=== PATIENT | female | born 1995 | race Hispanic/Latino ===

== ENCOUNTER 2022-10-11 19:29 | Day surgery (SDC) | payer OTHER ==
[2022-10-11 20:05] VITALS: BMI 29.5
[2022-10-11 20:41] LABS: Fetal Membranes Rupture No Membranes Rupture (No Rupture)
[2022-10-11] MEDS ORDERED: hydrALAZINE 20 MG/ML VIAL SLOW IVP PRN (21:12)
== END 2022-10-11 21:10 | disposition home or self-care (01) ==
LOC: CSHLD/OP 19:29
PROVIDERS: ATTEND Family Medicine
DX: Z03.71 Encounter for suspected problem with amniotic cavity and membrane ruled out (principal); O24.410 Gestational diabetes mellitus in pregnancy, diet controlled; Z3A.36 36 weeks gestation of pregnancy
CPT/HCPCS: 84112; 99283

== ENCOUNTER 2022-10-14 08:17 | Inpatient (IN) | payer MEDICAID, SELFPAY ==
[2022-10-14] MEDS ORDERED: Acetaminophen 500 MG TAB PO PRN (09:32)
[2022-10-14] MEDS ORDERED: Ibuprofen 800 MG TAB PO PRN (09:32)
[2022-10-14] MEDS ORDERED: Methylergonovine 0.2 MG/ML VIAL IM PRN (09:32)
[2022-10-14] MEDS ORDERED: hydrALAZINE 20 MG/ML VIAL SLOW IVP PRN (09:32)
[2022-10-14] MEDS ORDERED: Butorphanol Tartrate 1 MG/ML VIAL SLOW IVP PRN (09:32)
[2022-10-14] MEDS ORDERED: Lidocaine 1% (PF) 30 ML VIAL SC PRN (09:32)
[2022-10-14] MEDS ORDERED: Ondansetron PF 4 MG/2 ML Vial IVP PRN ×3 (09:32→21:44)
[2022-10-14] MEDS ORDERED: Misoprostol 200 MCG TAB PR PRN (09:32)
[2022-10-14] MEDS ORDERED: Carboprost 250 MCG/ML AMP IM PRN (09:32)
[2022-10-14] MEDS ORDERED: Promethazine HCl 25 MG/ML VIAL IM PRN ×3 (09:32→21:44)
[2022-10-14] MEDS ORDERED: Fentanyl 100 MCG/2 ML VIAL SLOW IVP PRN ×2 (09:32→21:44)
[2022-10-14] MEDS ORDERED: NS w/ Oxytocin 30 units 500 ML IV SCH ×2 (09:45)
[2022-10-14] MEDS ORDERED: Misoprostol 100 MCG TAB VAG SCH (09:45)
[2022-10-14 09:50] LABS: Fetal Membranes Rupture No Membranes Rupture (No Rupture)
[2022-10-14] MEDS: Lactated Ringer's 1,000 ML IV SCH ×2 (10:10→14:06)
[2022-10-14 10:28] LABS: Hemoglobin 11.2 g/dL (12.0-15.5); Mean Corpuscular HGB CONC 33.4 g/dL (32.0-36.0); Mean Corpuscular Hemoglobin 27.9 pg (27.0-33.0); Mean Corpuscular Volume 83.5 fl (81.6-98.3); Mean Platelet Volume 9.1 fl (7.4-10.4); Platelet Count 325 10x3/uL (150-450); RBC Distribution Width 15.6 % (11.5-14.5); Red Blood Cell (RBC) Count 4.01 10x6/uL (3.90-5.03); White Blood Cell (WBC) Count 24.3 10x3/uL (3.5-10.5)
[2022-10-14] MEDS ORDERED: Fentanyl 2 mcg/Bup 0.1% Cadd 100 ML ONE ×2 (10:37→18:23)
[2022-10-14 10:57] LABS: HBSAg Index 0.15 S/CO (0-0.99); Hep B Surf Ag Non-Reactive S/CO (NonReactive)
[2022-10-14] MEDS: Fentanyl 2 mcg/Bupivacaine 0.1% Cassette 100 ML EPIDURAL SCH ×2 (10:58→18:27)
[2022-10-14 10:59] LABS: Syphilis Antibody Nonreactive (Nonreactive); Syphilis Antibody Index 0.03 S/CO (<1.00 Non-Reactive)
[2022-10-14 11:28] VITALS: BMI 29.5
[2022-10-14] MEDS ORDERED: Naloxone HCl 0.4 mg/ml Vial IVP PRN ×4 (11:38→21:44)
[2022-10-14] MEDS ORDERED: ePHEDrine Sulfate 50 MG/10 ML VIAL SLOW IVP PRN (11:38)
[2022-10-14] MEDS ORDERED: Moisturizing Cream (Eucerin) 113 GM JAR TOP PRN ×2 (11:38→21:44)
[2022-10-14] MEDS ORDERED: diphenhydrAMINE 50 MG/ML VIAL IVP PRN ×2 (11:38→21:44)
[2022-10-14] MEDS ORDERED: Lactated Ringer's 500 ML IV PRN (11:38)
[2022-10-14] MEDS ORDERED: Communication Order-Pharmacy FS SCH ×2 (11:45→21:45)
[2022-10-14 12:19] LABS: SARS-CoV-2 NAA Rapid Test DETECTED (NotDetected)
[2022-10-14] MEDS: Ampicillin 2 GM in Sodium Chloride 0.9% 100 ML IVPB SCH ×2 (14:07→19:18)
[2022-10-14] MEDS: Acetaminophen 325 MG TAB PO PRN ×2 (14:09→19:18)
[2022-10-14] MEDS ORDERED: Gentamicin 270 MG, Admixture Fee 1 EACH in Sodium Chloride 0.9% 100 ML IVPB SCH (14:30)
[2022-10-14 14:36] LABS: Bilirubin Neg (Negative); Blood, Urine 250 (Negative); Clarity Cloudy (Clear); Glucose, Urine (Dipstick) Normal (Negative); Ketone, Urine 15 mg/dL (Negative); Leukocyte 500 (Negative); Nitrite Negative (Negative); Protein, Urine (Dipstick) 100 mg/dl (Neg-Trace); Specific Gravity, Urine 1.015 (1.005-1.030); Urobilinogen Normal mg/dL (Less than 2)
[2022-10-14 14:43] LABS: WBC/HPF Greater Than 50 HPF (0-3)
[2022-10-14 14:44] LABS: Bacteria/HPF 4+ HPF (None Seen); Squamous Epithelial 0-3 HPF (0-3)
[2022-10-14] MEDS ORDERED: Azithromycin 500 MG VIAL ONE (19:59)
[2022-10-14] MEDS ORDERED: CEFAZOLIN 2 GM VIAL ONE (19:59)
[2022-10-14] MEDS ORDERED: Lidocaine 2% MPF 10 ML AMP (For Epidural Use) ONE ×2 (20:03→21:05)
[2022-10-14] MEDS ORDERED: EPINEPHrine 1 MG/10 ML Abboject SYRINGE ONE (20:03)
[2022-10-14] MEDS ORDERED: Morphine PF 10 MG/10 ML VIAL ONE (20:03)
[2022-10-14] MEDS ORDERED: Famotidine/PF 20 mg/2ml Vial SLOW IVP PRN (20:05)
[2022-10-14] MEDS ORDERED: Bicitra 30 ML UDCUP PO PRN (20:05)
[2022-10-14] MEDS ORDERED: Azithromycin 500 MG in Sodium Chloride 0.9% 250 ML 250 ML IVPB SCH (20:15)
[2022-10-14] MEDS ORDERED: CEFAZOLIN 2 GM in Sodium Chloride 0.9% 100 ML IVPB SCH (20:15)
[2022-10-14] MEDS ORDERED: Fentanyl 100 MCG/2 ML VIAL ONE ×2 (20:18→23:53)
[2022-10-14] MEDS ORDERED: Dexamethasone 4 mg/ml Vial ONE (20:21)
[2022-10-14] MEDS ORDERED: Phenylephrine 10 MG/ML VIAL ONE (20:21)
[2022-10-14] MEDS ORDERED: Ondansetron PF 4 MG/2 ML Vial ONE (20:21)
[2022-10-14] MEDS ORDERED: Oxytocin 10 UNITS/ML VIAL ONE ×2 (20:32→20:48)
[2022-10-14] MEDS ORDERED: Ketamine 50 MG/ML (10ML VIAL) ONE (20:33)
[2022-10-14] MEDS ORDERED: Midazolam HCl 2 mg/2 ml Vial ONE (20:34)
[2022-10-14] MEDS ORDERED: Tranexamic Acid 1,000 MG/10 ML VIAL ONE ×2 (20:41→20:42)
[2022-10-14] MEDS ORDERED: metroNIDAZOLE 500 MG in Premix Bag 1 BAG IVPB SCH (21:15)
[2022-10-14] MEDS ORDERED: Ketorolac Tromethamine 30 MG/ML VIAL IVP PRN (21:44)
[2022-10-14] MEDS ORDERED: Ondansetron HCl/PF 4 MG/2 ML Vial IVP PRN (21:44)
[2022-10-14] MEDS ORDERED: Meperidine HCl/PF 25 MG/ML VIAL SLOW IVP PRN (21:44)
[2022-10-14] MEDS ORDERED: Naloxone HCl 0.4 mg/ml Vial IV PRN (21:44)
[2022-10-14] MEDS ORDERED: Promethazine HCl 25 MG SUPP PR PRN (21:44)
[2022-10-14] MEDS ORDERED: Ketorolac Tromethamine 30 MG/ML VIAL IVP SCH (21:45)
[2022-10-15] MEDS ORDERED: hydrALAZINE 20 MG/ML VIAL SLOW IVP PRN (00:08)
[2022-10-15] MEDS ORDERED: Ondansetron PF 4 MG/2 ML Vial IVP PRN (00:08)
[2022-10-15] MEDS ORDERED: Promethazine HCl 25 MG/ML VIAL IM PRN (00:08)
[2022-10-15] MEDS ORDERED: Bisacodyl 10 MG SUPP PR PRN (00:08)
[2022-10-15] MEDS ORDERED: Boostrix 0.5 ML (Tdap) VIAL (>/=7 yrs of age) IM ONE (00:08)
[2022-10-15] MEDS ORDERED: Simethicone Chewable 80 MG TAB PO PRN (00:08)
[2022-10-15] MEDS ORDERED: Lanolin Ointment 7 GM TUBE TOP PRN (00:08)
[2022-10-15] MEDS ORDERED: diphenhydrAMINE 25 MG CAP PO PRN (00:08)
[2022-10-15] MEDS ORDERED: Docusate 100 MG CAP PO SCH (00:15)
[2022-10-15] MEDS ORDERED: Ferrous Sulfate 325 MG TAB PO SCH (00:15)
[2022-10-15 00:42] LABS: Hemoglobin 11.6 g/dL (12.0-15.5); Mean Corpuscular Hemoglobin 28.3 pg (27.0-33.0); Mean Corpuscular Volume 85.9 fl (81.6-98.3); Mean Platelet Volume 9.8 fl (7.4-10.4); Platelet Count 252 10x3/uL (150-450); RBC Distribution Width 17.7 % (11.5-14.5); White Blood Cell (WBC) Count 38.5 10x3/uL (3.5-10.5)
[2022-10-15] MEDS: CEFAZOLIN 2 GM in Sodium Chloride 0.9% 100 ML IVPB SCH ×3 (02:07→18:27)
[2022-10-15] MEDS: Ampicillin 2 GM in Sodium Chloride 0.9% 100 ML IVPB SCH ×4 (02:07→20:17)
[2022-10-15] MEDS: Ketorolac Tromethamine 30 MG/ML VIAL IVP SCH ×3 (03:14→19:24)
[2022-10-15 03:58] LABS: Hemoglobin 12.1 g/dL (12.0-15.5); Mean Corpuscular HGB CONC 33.8 g/dL (32.0-36.0); Mean Corpuscular Hemoglobin 28.4 pg (27.0-33.0); Mean Platelet Volume 9.3 fl (7.4-10.4); Platelet Count 231 10x3/uL (150-450); RBC Distribution Width 17.1 % (11.5-14.5); Red Blood Cell (RBC) Count 4.26 10x6/uL (3.90-5.03)
[2022-10-15] MEDS: metroNIDAZOLE 500 MG in Premix Bag 1 BAG IVPB SCH ×3 (05:10→21:56)
[2022-10-15] MEDS ORDERED: Meperidine HCl/PF 25 MG/ML VIAL IM PRN (09:45)
[2022-10-15] MEDS: HYDROcodone/Acetaminophen 5/325 mg Tablet PO PRN ×2 (12:08→20:16)
[2022-10-15] MEDS: Ferrous Sulfate 325 MG TAB PO SCH ×2 (14:38→20:18)
[2022-10-15] MEDS: Famotidine/PF 20 mg/2ml Vial SLOW IVP SCH (14:38)
[2022-10-15] MEDS: Docusate 100 MG CAP PO SCH ×2 (14:38→20:18)
[2022-10-15] MEDS: Prenatal Vitamin 1 TAB PO SCH (14:38)
[2022-10-15] MEDS ORDERED: Sodium Chloride 0.9% 100 ML ONE (18:20)
[2022-10-15] MEDS: Ibuprofen 800 MG TAB PO SCH (20:56)
[2022-10-16] MEDS: CEFAZOLIN 2 GM in Sodium Chloride 0.9% 100 ML IVPB SCH ×3 (01:33→18:03)
[2022-10-16] MEDS: Ampicillin 2 GM in Sodium Chloride 0.9% 100 ML IVPB SCH ×4 (02:13→19:56)
[2022-10-16 05:22] LABS: Hemoglobin 10.1 g/dL (12.0-15.5); Mean Corpuscular HGB CONC 32.9 g/dL (32.0-36.0); Mean Corpuscular Hemoglobin 27.6 pg (27.0-33.0); Mean Corpuscular Volume 83.9 fl (81.6-98.3); Mean Platelet Volume 8.8 fl (7.4-10.4); Platelet Count 207 10x3/uL (150-450); RBC Distribution Width 17.4 % (11.5-14.5); Red Blood Cell (RBC) Count 3.66 10x6/uL (3.90-5.03); White Blood Cell (WBC) Count 31.7 10x3/uL (3.5-10.5)
[2022-10-16] MEDS: Ibuprofen 800 MG TAB PO SCH ×2 (05:32→13:57)
[2022-10-16] MEDS: metroNIDAZOLE 500 MG in Premix Bag 1 BAG IVPB SCH ×3 (05:33→21:43)
[2022-10-16] MEDS: HYDROcodone/Acetaminophen 5/325 mg Tablet PO PRN ×2 (05:43→10:16)
[2022-10-16] MEDS: Docusate 100 MG CAP PO SCH (08:10)
[2022-10-16] MEDS: Prenatal Vitamin 1 TAB PO SCH (08:10)
[2022-10-16] MEDS: Famotidine/PF 20 mg/2ml Vial SLOW IVP SCH (08:10)
[2022-10-16] MEDS: Ferrous Sulfate 325 MG TAB PO SCH (08:11)
[2022-10-17] MEDS: Docusate 100 MG CAP PO SCH ×2 (00:16→09:07)
[2022-10-17] MEDS: Ferrous Sulfate 325 MG TAB PO SCH ×2 (00:16→09:08)
[2022-10-17] MEDS: Ibuprofen 800 MG TAB PO SCH ×3 (00:16→14:10)
[2022-10-17] MEDS: Ampicillin 2 GM in Sodium Chloride 0.9% 100 ML IVPB SCH ×3 (01:53→14:11)
[2022-10-17] MEDS: CEFAZOLIN 2 GM in Sodium Chloride 0.9% 100 ML IVPB SCH ×3 (01:53→18:22)
[2022-10-17] MEDS: HYDROcodone/Acetaminophen 5/325 mg Tablet PO PRN ×3 (02:50→18:00)
[2022-10-17] MEDS: metroNIDAZOLE 500 MG in Premix Bag 1 BAG IVPB SCH ×2 (05:45→14:11)
[2022-10-17] MEDS: Famotidine/PF 20 mg/2ml Vial SLOW IVP SCH (09:07)
[2022-10-17] MEDS: Prenatal Vitamin 1 TAB PO SCH (09:07)
[2022-10-17 16:53] VITALS: BP 139/90; TEMP 97.8
== END 2022-10-17 18:45 | disposition home or self-care (01) | DRG 786 ==
LOC: CSHLD/OP 08:17 → CSHLD 18:42 → CSHANTE 10-15 14:25
PROVIDERS: ADMIT Family Medicine; ATTEND Family Medicine
PROC: 10D00Z1 Extraction of Products of Conception, Low, Open Approach (ICD-10-PCS; principal; 2022-10-14)
PROC: 0W3R0ZZ Control Bleeding in Genitourinary Tract, Open Approach (ICD-10-PCS; 2022-10-14)
PROC: 8E0ZXY6 Isolation (ICD-10-PCS; 2022-10-14)
PROC: 30233K1 Transfusion of Nonautologous Frozen Plasma into Peripheral Vein, Percutaneous Approach (ICD-10-PCS; 2022-10-14)
PROC: 30233N1 Transfusion of Nonautologous Red Blood Cells into Peripheral Vein, Percutaneous Approach (ICD-10-PCS; 2022-10-14)
PROC: 6A550Z2 Pheresis of Platelets, Single (ICD-10-PCS; 2022-10-14)
DX: O42.02 Full-term premature rupture of membranes, onset of labor within 24 hours of rupture (principal); U07.1 COVID-19; O98.32 Other infections with a predominantly sexual mode of transmission complicating childbirth; O98.52 Other viral diseases complicating childbirth; O72.1 Other immediate postpartum hemorrhage; O75.2 Pyrexia during labor, not elsewhere classified; A63.0 Anogenital (venereal) warts; O24.420 Gestational diabetes mellitus in childbirth, diet controlled; Z3A.38 38 weeks gestation of pregnancy; Z37.0 Single live birth; O62.1 Secondary uterine inertia; O32.8XX0 Maternal care for other malpresentation of fetus, not applicable or unspecified; O32.4XX0 Maternal care for high head at term, not applicable or unspecified; O76 Abnormality in fetal heart rate and rhythm complicating labor and delivery
CPT/HCPCS: 36415; 36416; 36430; 51702; 71045; 81003; 81015; 84112; 85027; 86780; 86850; 86900; 86901; 87077; 87086; 87186; 87340; 88307; 94760; 99152; 99285; J0171; J0290; J1100; J1580; J1885; J2250; J2274; J2370; J2405; J2590; J3010; J3490; J7120; P9016; P9035; P9048; S0028; U0002